=== PATIENT | female | born 1950 | race Caucasian/White ===

== ENCOUNTER 2017-01-02 11:44 | Outpatient (CLI) | payer MEDICARE ==
[2017-01-02 12:35] LABS: Anion Gap 16 mmol/L (10-20); BUN (Urea Nitrogen) 7 mg/dL (9.8-20.1); Calc. Creatinine Clearance 0 mL/min (70-130); Calcium 8.9 mg/dL (7.8-10.44); Carbon Dioxide 25 mmol/L (23-31); Chloride 93 mmol/L (98-107); Estimated GFR-MDRD 76; Glucose 84 mg/dL (80-115); Potassium 4.1 mmol/L (3.5-5.1); Sodium 130 mmol/L (136-145)
[2017-01-02 12:40] LABS: Blood, Urine Trace (Negative); Clarity Cloudy (Clear); Glucose, Urine (Dipstick) Negative (Negative); Leukocyte Negative (Negative); Nitrite Negative (Negative); Protein, Urine (Dipstick) Negative (Neg-Trace); Specific Gravity, Urine 1.025 (1.005-1.030); Urobilinogen 0.2 mg/dL (0.2-1.0); pH, Urine 5.5 (5.0-9.0)
[2017-01-02 13:23] LABS: Bilirubin Negative (Negative); Icto Negative (Negative)
[2017-01-02 13:28] LABS: Bacteria/HPF 1+ HPF (None Seen); RBC/HPF 0-3 HPF (0-3); Squamous Epithelial 0-3 HPF (0-3)
[2017-01-02 13:29] LABS: Crystals/HPF 3+ AMORPH URATES HPF (Negative); Other Microscopic Description NO
[2017-01-02 14:29] LABS: #Basophils 0.1 thou/uL (0.0-0.2); #Lymphocytes 1.7 thou/uL (1.20-3.40); #Monocytes 0.2 thou/uL (0.11-0.59); #Neutrophils 3.5 thou/uL (1.40-6.50); %Eosinophils 0.8 % (0.0-10.0); %Lymphocytes 30.9 % (21.0-51.0); %Neutrophils 63.2 % (42.0-75.0); Hemoglobin 14.1 g/dL (12.0-16.0); MDiff Complete? YES; Mean Corpuscular HGB CONC 33.2 g/dL (32.0-36.0); Mean Corpuscular Hemoglobin 31.8 pg (27.0-31.0); Mean Corpuscular Volume 95.8 fl (81.0-99.0); Mean Platelet Volume 6.9 fL (7.4-10.4); PLT Morphology Comment Appears Decreased; Platelet Clumps MODERATE; Platelet Count 42 thou/uL (130-400); RBC Distribution Width 12.3 % (11.5-14.5); Red Blood Cell (RBC) Count 4.45 mill/uL (4.20-5.40); White Blood Cell (WBC) Count 5.5 thou/uL (4.8-10.8)
== END 2017-01-02 11:45 | disposition home or self-care (01) ==
LOC: NAVSJIPCSP 11:44
PROVIDERS: ATTEND Family Medicine
DX: G25.81 Restless legs syndrome (principal); N39.0 Urinary tract infection, site not specified
CPT/HCPCS: 36415; 80048; 81003; 81015; 85025

== ENCOUNTER 2017-07-07 12:13 | Emergency (ER) | payer MEDICARE ==
[2017-07-07] MEDS ORDERED: methylPREDNISolone Sod Succ/PF 125 MG/2 ML VIAL ONE (13:15)
[2017-07-07 13:16] LABS: #Basophils 0.1 thou/uL (0.0-0.2); #Lymphocytes 0.5 thou/uL (1.20-3.40); #Monocytes 0.6 thou/uL (0.11-0.59); #Neutrophils 3.6 thou/uL (1.40-6.50); %Basophils 1.4 % (0.0-1.0); %Lymphocytes 9.5 % (21.0-51.0); %Monocytes 13.1 % (0.0-10.0); Mean Corpuscular Hemoglobin 31.1 pg (27.0-31.0); Mean Corpuscular Volume 94.3 fl (81.0-99.0); RBC Distribution Width 12.7 % (11.5-14.5); Red Blood Cell (RBC) Count 4.81 mill/uL (4.20-5.40); White Blood Cell (WBC) Count 4.7 thou/uL (4.8-10.8)
[2017-07-07 13:24] LABS: ALT (SGPT) 34 U/L (8-55); AST (SGOT) 88 U/L (5-34); Albumin 3.3 g/dL (3.4-4.8); Alkaline Phosphatase 54 U/L (40-150); Anion Gap 17 mmol/L (10-20); BUN (Urea Nitrogen) 34 mg/dL (9.8-20.1); Bilirubin, Total 0.6 mg/dL (0.2-1.2); CK (CPK) 1202 U/L (29-168); Calc. Creatinine Clearance 0 mL/min (70-130); Calcium 8.3 mg/dL (7.8-10.44); Carbon Dioxide 26 mmol/L (23-31); Chloride 87 mmol/L (98-107); Estimated GFR-MDRD 29; Glucose 94 mg/dL (80-115); Potassium 3.1 mmol/L (3.5-5.1); Protein, Total 6.3 g/dL (6.0-8.3); Sodium 127 mmol/L (136-145)
[2017-07-07 13:26] LABS: Troponin I 0.206 ng/mL (< 0.028)
[2017-07-07 13:30] LABS: CKMB 18.6 ng/mL (0-6.6); PLT Morphology Comment Appears Decreased
[2017-07-07 13:31] LABS: Platelet Count 67 thou/uL (130-400)
[2017-07-07 13:35] LABS: MDiff Complete? YES
--- NOTE | 2017-07-07 13:44 | RAD ---
PORTABLE UPRIGHT FRONTAL CHEST RADIOGRAPH: 07/07/2017 HISTORY: Cough. COPD. Hypotension. COMPARISON: 05/05/2016 FINDINGS: Stable diffuse increased linear and interstitial density noted with pulmonary hyperinflation, consist ent with the provided history of COPD. There are postoperative clips overlying the left hemithorax a nd left axillary region. There is no pneumothorax or pleural fluid and no focal consolidation or yuridia eolar edema. There is atherosclerotic calcification of the aortic arch. The bones are demineralized . IMPRESSION: Stable chronic findings, as detailed above. No lobar consolidation or alveolar edema. POS: [facility]
[2017-07-07] MEDS ORDERED: Potassium Chloride 20 MEQ TAB ONE (14:00)
[2017-07-07 14:13] LABS: Bilirubin Small (Negative); Blood, Urine Moderate (Negative); Clarity Slightly Cloudy (Clear); Glucose, Urine (Dipstick) Negative (Negative); Leukocyte Large (Negative); Nitrite Negative (Negative); Protein, Urine (Dipstick) 30 mg/dL (Neg-Trace); Specific Gravity, Urine 1.025 (1.005-1.030); Urobilinogen 0.2 mg/dL (0.2-1.0); pH, Urine 5.5 (5.0-9.0)
[2017-07-07 14:19] LABS: Squamous Epithelial 0-3 HPF (0-3)
[2017-07-07 14:20] LABS: Bacteria/HPF 2+ HPF (None Seen); Other Microscopic Description NO
[2017-07-07] MEDS ORDERED: cefTRIAXone\\ROCEPHIN 2 GM VIAL ONE (14:40)
[2017-07-07] MEDS ORDERED: Sodium Chloride 0.9% 100 ML ONE (14:41)
[2017-07-07] MEDS ORDERED: Sodium Chloride 0.9% 2,000 ML ONE (16:28)
== END 2017-07-07 15:14 | disposition short-term general hospital (02) ==
LOC: NAV ERS 12:13
DX: E86.0 Dehydration (principal); J11.1 Influenza due to unidentified influenza virus with other respiratory manifestations; I95.9 Hypotension, unspecified; R79.89 Other specified abnormal findings of blood chemistry; I10 Essential (primary) hypertension; J44.9 Chronic obstructive pulmonary disease, unspecified; F41.9 Anxiety disorder, unspecified; F32.9 Major depressive disorder, single episode, unspecified; F17.200 Nicotine dependence, unspecified, uncomplicated; Z85.3 Personal history of malignant neoplasm of breast; Z79.899 Other long term (current) drug therapy
CPT/HCPCS: 36415; 71045; 80053; 81003; 81015; 82550; 82553; 83605; 84484; 85025; 87040; 87077; 87086; 87186; 93005; 94640; 96361; 96365; 96375; J0696; J2930; J7050; J7620

== ENCOUNTER 2018-04-24 16:57 | Emergency (ER) | payer MEDICARE ==
[2018-04-24] MEDS ORDERED: Sodium Chloride 0.9% 500 ML ONE (17:44)
[2018-04-24] MEDS ORDERED: Ondansetron HCl/PF 4 MG/2 ML Vial ONE (17:45)
[2018-04-24] MEDS ORDERED: Meclizine HCl 25 MG TAB ONE (17:45)
[2018-04-24 17:54] LABS: #Basophils 0.1 thou/uL (0.0-0.2); #Eosinphils 0.1 thou/uL (0.0-0.7); #Lymphocytes 1.6 thou/uL (1.20-3.40); #Monocytes 0.5 thou/uL (0.11-0.59); #Neutrophils 3.6 thou/uL (1.40-6.50); %Eosinophils 1.1 % (0.0-10.0); %Lymphocytes 27.2 % (21.0-51.0); %Neutrophils 60.7 % (42.0-75.0); Hemoglobin 13.6 g/dL (12.0-16.0); Mean Corpuscular HGB CONC 32.2 g/dL (32.0-36.0); Mean Corpuscular Hemoglobin 31.7 pg (27.0-31.0); Mean Corpuscular Volume 98.4 fL (78.0-98.0); Mean Platelet Volume 6.9 fL (7.4-10.4); Platelet Count 211 thou/uL (130-400); RBC Distribution Width 11.2 % (11.5-14.5)
[2018-04-24 18:13] LABS: ALT (SGPT) 12 U/L (8-55); AST (SGOT) 18 U/L (5-34); Alkaline Phosphatase 71 U/L (40-150); Anion Gap 13 mmol/L (10-20); BUN (Urea Nitrogen) 8 mg/dL (9.8-20.1); Bilirubin, Total 0.6 mg/dL (0.2-1.2); Calc. Creatinine Clearance 0 mL/min (70-130); Calcium 9.3 mg/dL (7.8-10.44); Carbon Dioxide 30 mmol/L (23-31); Chloride 94 mmol/L (98-107); Estimated GFR-MDRD 75; Globulin 3.1 g/dL (2.4-3.5); Glucose 102 mg/dL (80-115); Potassium 3.3 mmol/L (3.5-5.1); Protein, Total 7.1 g/dL (6.0-8.3); Sodium 134 mmol/L (136-145)
--- NOTE | 2018-04-24 18:15 | CT ---
HEAD CT WITHOUT CONTRAST: 04/24/18 HISTORY: Dizziness. COMPARISON: 05/02/13. FINDINGS: No parenchymal hemorrhage. No extra-axial hematoma. No midline shift. Basilar cisterns are patent. Br ain volume, age appropriate. Cortical oconnell-white matter differentiation is preserved. Ventricles and sulci are patent an symmetric. Chronic small vessel ischemic change of white matter noted. Calvarium is intact. Adequate aeration of the sinuses and mastoid air cells. IMPRESSION: No acute intracranial process. POS: [facility]
[2018-04-24] MEDS ORDERED: Ketorolac Tromethamine 30 MG/ML VIAL ONE (18:23)
[2018-04-24] MEDS ORDERED: Potassium Chloride 20 MEQ TAB ONE (18:23)
[2018-04-24 18:35] LABS: Bilirubin Small (Negative); Blood, Urine Negative (Negative); Clarity Clear (Clear); Glucose, Urine (Dipstick) Negative (Negative); Leukocyte Negative (Negative); Nitrite Negative (Negative); Protein, Urine (Dipstick) Negative (Neg-Trace); Specific Gravity, Urine 1.015 (1.005-1.030); Urobilinogen 0.2 mg/dL (0.2-1.0)
== END 2018-04-24 18:55 | disposition home or self-care (01) ==
LOC: NAV ERS 16:57
DX: M62.838 Other muscle spasm (principal); R42 Dizziness and giddiness; I10 Essential (primary) hypertension; J44.9 Chronic obstructive pulmonary disease, unspecified; F41.9 Anxiety disorder, unspecified; F32.9 Major depressive disorder, single episode, unspecified; F17.210 Nicotine dependence, cigarettes, uncomplicated; Z79.899 Other long term (current) drug therapy
CPT/HCPCS: 70450; 80053; 81003; 85025; 93005; 96374; 96375; J1885; J2405; J7050

== ENCOUNTER 2020-10-10 15:19 | Outpatient (CLI) | payer MEDICARE | END 2020-10-10 15:20 | disposition home or self-care (01) | LOC: NAV RAD 15:19 | PROVIDERS: ATTEND Family Medicine | DX: M79.672 Pain in left foot (principal); M79.89 Other specified soft tissue disorders ==